=== PATIENT | male | born 1930 | race Caucasian/White ===

== ENCOUNTER → 2019-08-02 | Day surgery (SDC) | payer OTHER ==
[~2019-08-02] VITALS: Ht 160 cm; Wt 83.9 kg
[~2019-08-02] MED LIST: CENTRUM SILVER1 EAC3 PO; PEPCID20 MG PO; ZESTRIL10 MG PO
[2019-08-02 08:36] VITALS: BP 155/87
[2019-08-02 09:00] VITALS: BP 125/72
[2019-08-02 09:15] VITALS: BP 130/80
[2019-08-02 09:30] VITALS: BP 133/76
--- NOTE | 2019-08-02 09:30 | NUR ---
iv site discontinued. site asymptomatic
== END | disposition home or self-care (01) ==
LOC: SDC 07-30 08:00
DX: R13.12 Dysphagia, oropharyngeal phase (principal); K44.9 Diaphragmatic hernia without obstruction or gangrene; I10 Essential (primary) hypertension; K21.9 Gastro-esophageal reflux disease without esophagitis; Z98.890 Other specified postprocedural states; Z87.891 Personal history of nicotine dependence